=== PATIENT | female | born 1990 | race Two or more races ===

== ENCOUNTER 2024-06-29 07:49 | Emergency (ER) | payer OTHER ==
[~2024-06-29] VITALS: Ht 152.4 cm; Wt 54.4 kg
[2024-06-29 10:14] LABS: HEMATOCRIT 35.2 % (36.0-45.00); HEMOGLOBIN 12.4 g/dL (12.0-15.00); MEAN CELL VOLUME 96.3 fL (80.00-100.00); MEAN CORPUSCULAR HEMOGLOBIN 33.9 pg (27.00-32.0); MEAN CORPUSCULAR HGB CONC 35.2 g/dl (32.0-36.0); PLATELET COUNT 259 K/uL (150-450); RED BLOOD COUNT 3.65 M/uL (4.00-6.00); RED CELL DISTRIBUTION WIDTH 13.5 % (11.5-14.5)
[2024-06-29 10:19] LABS: URINE APPEARANCE Clear; URINE BILIRRUBIN Negative (NEGATIVE); URINE BLOOD Negative; URINE COLOR Yellow; URINE GLUCOSE Negative (NEGATIVE); URINE KETONE Negative (NEGATIVE); URINE LEUKOCYTE Negative; URINE NITRATE Negative; URINE PROTEIN Negative (NEGATIVE); URINE UROBILINOGEN 0.2 E.U./dl
[2024-06-29 10:24] LABS: URINE BACTERIA 6.2 uL (0.0-1933); URINE RBC 8.7 uL (0.0-20.8); URINE WBC 2.4 uL (0.0-23.2)
[2024-06-29 10:32] LABS: URINE EPITHELIAL CELLS 0.4 uL (0.0-38.8)
[2024-06-29 10:42] LABS: INR 0.97; PARTIAL THROMBOPLASTIN TIME 26.2 SECONDS (22.0-34.0); PROTHROMBIN TIME 10.6 SECONDS (9.0-11.5)
[2024-06-29 10:51] LABS: ALBUMIN 3.5 gm/dL (3.4-5.0); BILIRUBIN TOTAL 0.64 mg/dL (0.3-1.2); CREATININE SERUM 0.43 mg/dL (0.55-1.02); GFR 166.14; GLOBULINA 4.7 G/DL (2.4-3.5); POTASSIUM 3.56 mEq/L (3.5-5.1); TOTAL PROTEIN 8.2 gm/dL (6.4-8.2)
[2024-06-29] MEDS ORDERED: TAMSULOSIN HCL 0.4 MG CAP PO ONE ×2 (11:00→11:01)
== END 2024-06-29 12:28 | disposition home or self-care (01) ==
LOC: ER 07:51
PROVIDERS: General Practice
DX: O26.891 Other specified pregnancy related conditions, first trimester (principal); R33.9 Retention of urine, unspecified; Z3A.11 11 weeks gestation of pregnancy; Z88.6 Allergy status to analgesic agent

== ENCOUNTER 2024-10-27 21:48 | Outpatient (CLI) | payer OTHER ==
[2024-10-27 21:16] VITALS: BP 112/69
[2024-10-27] MEDS ORDERED: IRON236 MG PO (21:53)
[2024-10-27] MEDS ORDERED: PRENATABS RX T1 EACH PO (21:53)
[2024-10-27 23:27] VITALS: BP 99/64
== END 2024-10-28 10:42 | disposition home or self-care (01) ==
LOC: OBS/DEL 21:48
PROVIDERS: ATTEND Obstetrics & Gynecology Maternal & Fetal Medicine
DX: O36.8130 Decreased fetal movements, third trimester, not applicable or unspecified (principal); Z3A.28 28 weeks gestation of pregnancy

== ENCOUNTER 2025-01-09 11:11 | Outpatient (CLI) | payer OTHER ==
[~2025-01-09 11:11] MED LIST: IRON236 MG PO; PRENATABS RX T1 EACH PO
[2025-01-09 11:54] VITALS: BP 100/65
== END 2025-01-09 11:45 | disposition home or self-care (01) ==
LOC: NST 11:11
PROVIDERS: ATTEND Obstetrics & Gynecology Maternal & Fetal Medicine
DX: Z3A.39 39 weeks gestation of pregnancy (principal)

== ENCOUNTER 2025-01-09 13:45 | Inpatient (IN) | payer OTHER ==
[~2025-01-09] VITALS: Ht 152.4 cm; Wt 3.6 kg
[2025-01-20] VITALS (8 sets, daily range): BP systolic 111–121; BP diastolic 45–66
[2025-01-20 17:08] LABS: HEMATOCRIT 37.8 % (36.0-45.00); HEMOGLOBIN 13.3 g/dL (12.0-15.00); MEAN CELL VOLUME 98.9 fL (80.00-100.00); MEAN CORPUSCULAR HEMOGLOBIN 34.7 pg (27.00-32.0); MEAN CORPUSCULAR HGB CONC 35.1 g/dl (32.0-36.0); PLATELET COUNT 265 K/uL (150-450); RED BLOOD COUNT 3.82 M/uL (4.00-6.00); RED CELL DISTRIBUTION WIDTH 14.5 % (11.5-14.5)
[2025-01-20] MEDS ORDERED: CHLORHEXIDINE GLUCONATE 120 ML BOTTLE TOP ONE (17:18)
[2025-01-20] MEDS ORDERED: ERYTHROMYCIN BASE OPHT 1GM EACH TUBE OP ONE ×2 (17:18→20:30)
[2025-01-20] MEDS ORDERED: OXYTOCIN 20 UNITS/1000ML RL PIGGYBAG IV ONE (17:18)
[2025-01-20] MEDS ORDERED: LIDOCAINE HCL 1% 10ML VIAL ONE (17:18)
[2025-01-20 17:28] LABS: INR 0.95; PARTIAL THROMBOPLASTIN TIME 27.9 SECONDS (22.0-34.0); PROTHROMBIN TIME 10.4 SECONDS (9.0-11.5)
[2025-01-20 17:33] LABS: ALBUMIN 2.8 gm/dL (3.4-5.0); BILIRUBIN TOTAL 0.94 mg/dL (0.3-1.2); CALCIUM 8.9 mg/dL (8.5-10.1); CREATININE SERUM 0.56 mg/dL (0.55-1.02); GFR 122.49; GLOBULINA 4.1 G/DL (2.4-3.5); POTASSIUM 3.62 mEq/L (3.5-5.1); TOTAL PROTEIN 6.9 gm/dL (6.4-8.2)
[2025-01-20] MEDS ORDERED: MORPHINE SULFATE 4 MG/ML CARTRIDGE IV STA (18:14)
[2025-01-20] MEDS ORDERED: DOCUSATE SODIUM 100MG CAP PO SCH (19:36)
[2025-01-20] MEDS ORDERED: OXYTOCIN 1,000 ML IV SCH (19:45)
[2025-01-20] MEDS ORDERED: CHLORHEXIDINE GLUCONATE 120 ML BOTTLE TOP SCH (19:45)
[2025-01-20] MEDS ORDERED: OxyCODONE HCL 5 MG TABLET (ROXICODONE) PO SCH (20:00)
[2025-01-20] MEDS ORDERED: LIDOCAINE HCL 1% 10ML VIAL IJ ONE (20:30)
[2025-01-21] MEDS ORDERED: ACETAMINOPHEN 500 MG GEL..CAP PO SCH
[2025-01-21 01:05] VITALS: BP 96/61
[2025-01-21 08:00] VITALS: BP 105/68
[2025-01-21] MEDS ORDERED: TAMSULOSIN HCL 0.4 MG CAP PO SCH (09:00)
[2025-01-21 16:25] VITALS: BP 103/63
[2025-01-22 00:50] VITALS: BP 103/68
[2025-01-22 08:00] VITALS: BP 100/65
== END 2025-01-22 16:07 | disposition home or self-care (01) | DRG 768 ==
LOC: LDR 01-15 13:45 → OB/GYN 01-20 16:38 → LDR 01-20 16:38 → OB/GYN 01-20 20:38
PROVIDERS: ADMIT Obstetrics & Gynecology Maternal & Fetal Medicine; ATTEND Obstetrics & Gynecology Maternal & Fetal Medicine
PROC: 10E0XZZ Delivery of Products of Conception, External Approach (ICD-10-PCS; principal; 2025-01-20)
PROC: 0DQR0ZZ Repair Anal Sphincter, Open Approach (ICD-10-PCS; 2025-01-20)
PROC: 0W8NXZZ Division of Female Perineum, External Approach (ICD-10-PCS; 2025-01-20)
PROC: 4A1HXCZ Monitoring of Products of Conception, Cardiac Rate, External Approach (ICD-10-PCS; 2025-01-20)
DX: O70.21 Third degree perineal laceration during delivery, IIIa (principal); Z37.0 Single live birth; Z3A.40 40 weeks gestation of pregnancy

== ENCOUNTER 2025-01-17 08:57 | Outpatient (CLI) | payer OTHER | END 2025-01-17 09:35 | disposition home or self-care (01) | LOC: NST 08:57 | PROVIDERS: ATTEND Obstetrics & Gynecology Maternal & Fetal Medicine | DX: Z34.83 Encounter for supervision of other normal pregnancy, third trimester (principal) ==